=== PATIENT | male | born 1970 | race Caucasian/White ===

== ENCOUNTER 2017-06-20 20:49 | Emergency (ER) | payer SELFPAY ==
[~2017-06-20] VITALS: Ht 172.7 cm; Wt 82.5 kg
[2017-06-20 21:13] VITALS: Ht 172.7 cm; Wt 82.5 kg
[2017-06-20 23:48] VITALS: BP 143/86
== END 2017-06-20 23:48 | disposition home or self-care (01) ==
LOC: ED 20:49
DX: S90.822A Blister (nonthermal), left foot, initial encounter (principal); S90.821A Blister (nonthermal), right foot, initial encounter; E11.9 Type 2 diabetes mellitus without complications; L85.3 Xerosis cutis; X58.XXXA Exposure to other specified factors, initial encounter; Y93.89 Activity, other specified; Y92.89 Other specified places as the place of occurrence of the external cause; Y99.8 Other external cause status
CPT/HCPCS: 82962